=== PATIENT | female | born 1965 | race Caucasian/White ===

== ENCOUNTER 2024-04-01 13:21 | Emergency (ER) | payer OTHER, SELFPAY ==
[2024-04-01 13:24] VITALS: BP 115/75
--- NOTE | 2024-04-01 15:30 | ED.GENMED ---
History of Present Illness
General
Chief Complaint: Fever
Time Seen by Provider: 04/01/24 15:12
History of Present Illness
History of Present Illness:
58-year-old female presents the emergency department with a chief complaint of left knee pain after a fall yesterday. She also notes that she has had a fever and a migraine headache for the past 3 days. According to her son she is somewhat
confused on occasion which is normal for her whenever she has a fever. Patient also endorses a cough but denies any lower urinary tract voiding symptoms. She is quite agitated on my initial evaluation and is frequently yelling at me for asking her
questions.
Past History
Past History
ED Past Medical History: Asthma and Other (Migraines, atrial tachycardia)
ED Past Surgical History: Other (Breast implants)
Social History
Tobacco: Non-smoker
Alcohol: Occasional
Drug: None
Personal: Single
Living: with family
Review of Systems
Review of Systems
Allergies reviewed?: Yes
All Other Systems: ROS reviewed and negative except as documented in HPI and ROS
Phy Exam
Physical Exam
Physical Exam:
GEN: Well appearing, NAD, WDWN
HEENT: Oral mucosa moist, no scleral icterus
Cardiac: Regular rate and rhythm, no murmurs
Lung: No respiratory distress, no tachypnea, lungs clear to auscultation bilaterally
MSK: Mild swelling to the left knee with no gross deformity or ecchymosis. The patient screams in agony of the left knee and refuses to move the knee, no obvious hip tenderness
Skin: Good color, no pallor or jaundice, no rashes
Neuro: AO x3, moves all extremities freely
Psych: Agitated and noncooperative
Course
Orders/Labs/Results
Orders:
Orders
04/01/24 15:29
Metoclopramide [Reglan] 10 mg IV NOW STA
04/01/24 15:45
Alcohol Urgent
CBC/With Diff [Complete Blood Count/With Diff] Urgent
CMP [Comprehensive Metabolic Panel] Urgent
04/01/24 16:03
Ondansetron Injectable [Zofran] 4 mg IV NOW STA
Abnormal Lab Results
04/01/24
15:45
MCH 33.8 H pg
(27.0-31.0)
04/01/24 15:45
04/01/24 15:45
Vital Signs
Initial and Last Documented VS:
Initial Vital Signs
Temp Pulse Resp BP Pulse Ox
98.0 F 84 18 115/75 97
04/01/24 13:24 04/01/24 13:24 04/01/24 13:24 04/01/24 13:24 04/01/24 13:24
Last Documented Vital Signs
Temp Pulse Resp BP Pulse Ox
98.0 F 76 14 120/71 94
04/01/24 13:24 04/01/24 16:00 04/01/24 15:45 04/01/24 16:00 04/01/24 16:00
MDM/Problems Addressed
MDM/Problems Addressed:
After initial evaluation I discussed with the patient we will be obtaining labs and a chest x-ray to evaluate for pulmonary etiology to her fever as well as a urinalysis, ultimately would also obtain left knee x-rays. When I approached the subject
of left knee x-rays the patient said to me 'chest x-rays? I could have done that in urgent care'. I informed her that x-rays are an appropriate study for her traumatic knee pain however she again became irate at this. Shortly after my orders were
placed the patient informed her nurse that she would like to sign out AGAINST MEDICAL ADVICE. I reevaluated the patient informed her that we have not completed any workup and thus cannot provide any further medical care. Despite this she opted to
leave AGAINST MEDICAL ADVICE without signing paperwork, her son assumed care of her at the time of departure
*Critical Care Note
Total Time (30-74mins, 75-104mins- exclusive of procedures): Not Applicable
Update Note
Update Note:
1607: Patient informs me that she would like to sign out AGAINST MEDICAL ADVICE. She states she is waited entirely too long and does not feel that an x-ray of her left knee will be appropriate. I educated her that her orders are in and we will
happily treat her migraine headache and assess her fever and coughing as well as her left knee pain however she declines and states to me 'this is a waste of time'. She is clinically stable and although I am concerned she may have a significant
left knee injury patient is quite aggravated and refuses to allow for any further assessment.
ED Attending Note
-
Portions of this chart may have been created with voice recognition software.� Occasional wrong word or��sound alike� substitutions may have occurred due to the inherent limitations of voice recognition software.
Discharge Plan
Departure
Patient Disposition: Against Medical Advice
Date of Disposition: 04/01/24
Time of Disposition: 16:11
Discharge Problem:
Migraine, Fever, Injury of knee, left
Prescriptions:
No Action
metoprolol tartrate 50 MG tablet
50 mg PO BID
albuterol sulfate 1 PUFF HFA aerosol inhaler
2 puff inhalation R Q4 PRN (Reason: sob/wheezing)
albuterol sulfate 2.5 mg /3 mL (0.083 %) solution for nebulization
2.5 mg inhalation R Q4 PRN (Reason: sob/wheezing)
iyvqlkbqmr-uzurqxazjteci-qbzq 50-325-40 mg tablet
1 tab PO Q4H MDD 6tabs/24hrs PRN (Reason: migraine)
Patient Comments:
09/15/2022: last filled 09/11/22, 120 tabs for 20 days from [id number]
oxycodone-acetaminophen 10-325 mg tablet
1 tab PO Q6H PRN (Reason: moderate pain)
Patient Comments:
09/15/2022: last filled 08/31/22, 100 tabs for 25 days from [id number]
Polysporin 500-10,000 unit/gram Ointment In Packet
0 applic topical BID Qty: 0 0RF
cephalexin 500 mg capsule
500 mg PO QID Qty: 40 0RF
Rx Instructions:
take for 10 days
Referrals:
Canelo Mijares MD [Family Provider] -
Activity Restrictions/Additional Instructions:
We offered to assess blood work and treat her migraine headache as well as assessed your left knee injury however you opted to sign out AGAINST MEDICAL ADVICE. Please consider returning to the Emergency Department if your symptoms worsen
Interventions
Interventions:
*Risk Screen - Suicide Last Done: 04/01/24 13:24
*General Assessment Last Done: 04/01/24 13:24
*Neglect/Abuse Screening Last Done: 04/01/24 13:24
ED- Fall Risk Assessment Last Done: 04/01/24 16:41
*ED COVID-19 Vaccine History Last Done: 04/01/24 13:24
*Nursing Disposition Last Done: 04/01/24 16:42
ED- Neurological Assessment Last Done: 04/01/24 15:50
ED-Skin Assessment Last Done: 04/01/24 15:50
Discharge Date and Time
Discharge Date/Time: 04/01/24 16:43
Print Language: KAZAKH
[2024-04-01] MEDS: REGLAN 10 MG IV (15:35)
[2024-04-01 15:44] VITALS: BP 114/68
[2024-04-01 16:00] VITALS: BP 120/71
[2024-04-01 16:17] LABS: % Basophils 0.4 % (0-2); % Eosinophils 0.7 % (0-6); % Immature Granulocytes 0.1 % (0-0.5); % Lymphocytes 24.7 % (20.5-51.1); % Neutrophils 67.1 % (42.2-75.2); Absolute Eosinophils 0.1 10^3/uL (0-0.7); Absolute Lymphocytes 2.1 10^3/uL (1.2-3.4); Absolute Monocytes 0.6 10^3/uL (0.1-0.6); Absolute Neutrophils 5.7 10^3/uL (1.4-6.5); Hematocrit 41.7 % (37.0-47.0); Hemoglobin 14.3 g/dL (12.0-16.0); Mean Corp Hgb Conc. 34.3 g/dL (33.0-37.0); Mean Corpuscular Hgb 33.8 pg (27.0-31.0); Mean Corpuscular Volume 98.6 fL (81.0-99.0); Mean Platelet Volume 9.9 fL (7.4-10.4); Nucleated Red Blood Cells % 0 %; Platelet Count 248 10^3/uL (130-400); Red Blood Cell Count 4.23 10^6/uL (4.20-5.40); Red Cell Dist. Width 13.5 % (11.5-14.5); White Blood Cell Count 8.5 10^3/uL (4.8-10.8)
[2024-04-01 16:39] LABS: ALT (SGPT) 15 U/L (0-35); AST (SGOT) 25 U/L (14-36); Alkaline Phosphatase 76 U/L (38-126); Blood Urea Nitrogen 12 mg/dl (7-17); Calcium 9.7 mg/dl (8.4-10.2); Carbon Dioxide 25 mmol/L (22-30); Chloride 102 mmol/L (98-107); Glucose 90 mg/dl (70-99); Potassium 4.6 mmol/L (3.5-5.1); Sodium 136 mmol/L (135-145); Total Bilirubin 0.7 mg/dl (0.2-1.3); Total Protein 7.4 g/dl (6.3-8.2); eGFR > 60.00
[2024-04-01 17:21] LABS: Alcohol None Detected
== END 2024-04-01 16:43 | disposition left against medical advice (07) ==
LOC: EMR 13:21
PROVIDERS: Emergency Medicine; EMERGENCY PHYSICIAN Student in an Organized Health Care Education/Training Program; FAMILY PHYSICIAN Family Medicine
DX: G43.909 Migraine, unspecified, not intractable, without status migrainosus (principal); R50.9 Fever, unspecified; S89.92XA Unspecified injury of left lower leg, initial encounter; W19.XXXA Unspecified fall, initial encounter; M25.562 Pain in left knee; J45.909 Unspecified asthma, uncomplicated
CPT/HCPCS: 99283; 96374; 96375; 80053; 82077; 85025

== ENCOUNTER 2024-06-05 11:07 | Emergency (ER) | payer OTHER, SELFPAY ==
[2024-06-05 11:09] VITALS: BP 133/82
--- NOTE | 2024-06-05 11:36 | ED.GENMED ---
History of Present Illness
<Cassia Le PA-C - Last Filed: 06/05/24 17:02>
General
Chief Complaint: Fall
Source: patient
Exam Limitations: none
Time Seen by Provider: 06/05/24 11:35
Nursing documentation reviewed up to this point in time: agreed with
History of Present Illness
History of Present Illness:
59-year-old female presents emergency department today with concerns of migraine headache for the past 3 days as well as left-sided supraorbital pain following head trauma that occurred yesterday. Patient reports that she was standing in the
bathroom when she slipped on water and subsequently fell into the tub, hitting her face and subsequently losing consciousness. Patient is present in room with son who reports that he was at home during this time when he heard a loud crash and came
to see patient lying on the ground. Patient reports that she has been icing the area without relief. Patient states that she has felt foggy and states that she has had a persistent migraine, which is usually relieved with Fioricet but this time is
not helping. She also has felt nauseous but has had no vomiting. Patient denies any fevers or chills. Patient denies any neck pain. Patient does not take any blood thinning medications. Patient states that she has an allergy to all NSAIDs and
states that when she takes them a lot of different side affects will occur. Patient denies any visual changes. She does note an on and off ringing sensation in her right ear.
Past History
<Cassia Le PA-C - Last Filed: 06/05/24 17:02>
Past History
ED Past Medical History: Asthma and Other (Migraines, atrial tachycardia)
ED Past Surgical History: Other (Breast implants)
Social History
Tobacco: Non-smoker
Alcohol: Occasional
Drug: None
Personal: Single
Living: with family
Review of Systems
<Cassia Le PA-C - Last Filed: 06/05/24 17:02>
Review of Systems
All Other Systems: ROS reviewed and negative except as documented in HPI and ROS
Phy Exam
<Cassia Le PA-C - Last Filed: 06/05/24 17:02>
Physical Exam
Physical Exam:
General: Patient is well appearing and in no acute distress; non-toxic
Skin: Warm and dry, no rashes or lesions
Head: Normocephalic, no palpable scalp hematomas. Ecchymosis surrounding the left orbit. Tenderness to palpation the left segment process with no palpable bony abnormalities.
Eyes: Sclera non-icteric. EOMs intact. PERRLA. No entrapment.
Cardiac: Regular rate and rhythm, no murmurs. No tenderness palpation of external chest wall.
Pulm: Normal respiratory effort, no wheezes, rales, rhonchi
Abdomen: No abdominal tenderness to palpation
Musculoskeletal: Mild suprapatellar swelling noted to the left knee, no obvious bony deformities, pain with passive flexion extension
Neuro: CN II-XII intact, no focal neurologic deficits. Normal finger to nose, heel to harkins testing. 5/5 strength in bilateral upper and lower extremeties.
Psychiatric: Appropriate mood and affect.
Course
<Cassia Le PA-C - Last Filed: 06/05/24 17:02>
Orders/Labs/Results
Orders:
Orders
06/05/24 11:20
CT Head W/o Iv Contrast Urgent
Comment:
Reason For Exam: head injury, change in mental status
Facial Bones wo Contrast CT [CT Facial Bones W/o Iv Contras] Urgent
Comment:
Reason For Exam: trauma
06/05/24 12:18
CR Knee - Left 4 Or More View* Urgent
Comment:
Reason For Exam: left knee pain
06/05/24 12:42
0.9% Sodium Chloride 500 ml [Nss] 500 ml IV BOLUS
Diphenhydramine [Benadryl] 12.5 mg IV NOW STA
Metoclopramide [Reglan] 10 mg IV NOW STA
06/05/24 14:20
Butalb/Acetaminophen/Caffeine [Fioricet] 2 tab PO NOW STA
Vital Signs
Initial and Last Documented VS:
Initial Vital Signs
Temp Pulse Resp BP Pulse Ox
97.6 F 87 16 133/82 96
06/05/24 11:09 06/05/24 11:09 06/05/24 11:09 06/05/24 11:09 06/05/24 11:09
Last Documented Vital Signs
Temp Pulse Resp BP Pulse Ox
97.6 F 87 16 131/69 96
06/05/24 11:09 06/05/24 11:09 06/05/24 11:09 06/05/24 12:25 06/05/24 12:30
<Emmanuel Bowman, - Last Filed: 06/05/24 14:34>
Orders/Labs/Results
Orders:
Orders
06/05/24 11:20
CT Head W/o Iv Contrast Urgent
Comment:
Reason For Exam: head injury, change in mental status
Facial Bones wo Contrast CT [CT Facial Bones W/o Iv Contras] Urgent
Comment:
Reason For Exam: trauma
06/05/24 12:18
CR Knee - Left 4 Or More View* Urgent
Comment:
Reason For Exam: left knee pain
06/05/24 12:42
0.9% Sodium Chloride 500 ml [Nss] 500 ml IV BOLUS
Diphenhydramine [Benadryl] 12.5 mg IV NOW STA
Metoclopramide [Reglan] 10 mg IV NOW STA
06/05/24 14:20
Butalb/Acetaminophen/Caffeine [Fioricet] 2 tab PO NOW STA
Vital Signs
Initial and Last Documented VS:
Initial Vital Signs
Temp Pulse Resp BP Pulse Ox
97.6 F 87 16 133/82 96
06/05/24 11:09 06/05/24 11:09 06/05/24 11:06/05/24 11:09 06/05/24 11:09
Last Documented Vital Signs
Temp Pulse Resp BP Pulse Ox
97.6 F 87 16 131/69 96
06/05/24 11:09 06/05/24 11:09 06/05/24 11:09 06/05/24 12:25 06/05/24 12:30
Phyllislt;Cassia Le PA-C - Last Filed: 06/05/24 17:02>
MDM/Problems Addressed
Differential Diagnosis Includes:
Differentials include concussion, subdural hematoma, epidural hematoma, migraine headache, tension headache
MDM/Problems Addressed:
59-year-old female presents emergency department with concerns of a 3-day migraine as well as head trauma. Patient reports that she was standing in the bathroom yesterday when she slipped on water and fell, hitting her head on the tub. Patient
states that after this time she started to feel 'foggy' in the head, as well as have the ringing sensation in her right ear. Here in the ER, will treat migraine symptoms with Reglan and Benadryl, will reassess.
On exam, she is well-appearing but does have ecchymosis around the left orbit. She received a CAT scan of the head and facial bones which was negative for any acute intracranial abnormality, negative for any acute fracture. Will send off for x-ray
of the knee.
Patient treated with Reglan and Benadryl. Patient offered Tylenol and Toradol however she reports that she is allergic to all NSAIDs and gets severe itching and also reports that Tylenol does not help her at all. Patient persistently requesting
opioids. Patient states that her parasites at home have helped in the past. Patient states that the Benadryl Reglan given here did not help her symptoms. Patient given her Fioricet dosing here in the emergency department. Patient symptoms likely
related to her migraine disorder as well as concussion as her injury occurred last night and her CAT scan of the head and facial bones were negative for any acute intracranial normality. Patient stable for outpatient follow-up. Discussed seeing a
neurologist for her persistent headaches or seeing her PCP. Patient stable for discharge.
Chronic conditions affecting care:
asthma, migraines
<Cassia Le PA-C - Last Filed: 06/05/24 17:02>
*Pulse Oximetry
Patient hypoxic: no
*Critical Care Note
Total Time (30-74mins, 75-104mins- exclusive of procedures): Not Applicable
Data Reviewed
Review of Other/Old Records Reveals: Records (Reviewed discharge summary from 09/14/2022, patient seen in hospital for altered mental status, opioid abuse with suspected ) and Radiology Studies (Reviewed previous head CT from 09/13/2022, patient seen
for altered mental status, head CT normal)
Source: patient and records
Prescriptions/Medications Considered But Not Given:
n/a
Further Testing Considered But Not Given:
n/a
<Cassia Le PA-C - Last Filed: 06/05/24 17:02>
Patient Management
Escalation/DeEscalation of care consider admission/obs:
Admit not indicated, patient stable for discharge
ED Attending Note
<BETH Paulino Last Filed: 06/05/24 17:02>
-
Portions of this chart may have been created with voice recognition software.� Occasional wrong word or��sound alike� substitutions may have occurred due to the inherent limitations of voice recognition software.
<Emmanuel Bowman DO - Last Filed: 06/05/24 14:34>
ED Attending Note
Patient seen and examined by attending physician: Yes
I performed the substantive portion of visit, reviewed & personally made and approve the management plan that is documented in note by myself or SANDRA.: Yes
ED Attending Note:
59yo female who presents after head injury. she states that she fell in the shower yesterday. c/o SANDOVAL. does admit to h/o migraines and states she has had a headache for the last 2 to 3 days. She takes Fioricet. Exam: Left periorbital ecchymosis
noted. Nonfocal motor exam. CT negative. Assessment and plan: CT negative. Patient appears well. Patient admits that her aura has resolved. Patient does still complain of headache. Will trial her dose of Fioricet as she has not taken it
today. Recommended close outpatient follow-up.
Discharge Plan
Departure
Patient Disposition: Home (Routine Discharge)
Date of Disposition: 06/05/24
Time of Disposition: 14:20
Patient with high blood pressure during this ER visit?: Yes
Condition: Good
Discharge Problem:
Concussion, Head injury
Instructions: Concussion, Adult (DC), Head Injury in Adults (DC)
Prescriptions:
No Action
metoprolol tartrate 50 MG tablet
50 mg PO BID
albuterol sulfate 1 PUFF HFA aerosol inhaler
2 puff inhalation R Q4 PRN (Reason: sob/wheezing)
albuterol sulfate 2.5 mg /3 mL (0.083 %) solution for nebulization
2.5 mg inhalation R Q4 PRN (Reason: sob/wheezing)
sgjmtasbxs-feadibcmmhrul-dyfh 50-325-40 mg tablet
1 tab PO Q4H MDD 6tabs/24hrs PRN (Reason: migraine)
Patient Comments:
09/15/2022: last filled 09/11/22, 120 tabs for 20 days from [facility]
oxycodone-acetaminophen 10-325 mg tablet
1 tab PO Q6H PRN (Reason: moderate pain)
Patient Comments:
09/15/2022: last filled 08/31/22, 100 tabs for 25 days from [facility]
Polysporin 500-10,000 unit/gram Ointment In Packet
0 applic topical BID Qty: 0 0RF
cephalexin 500 mg capsule
500 mg PO QID Qty: 40 0RF
Rx Instructions:
take for 10 days
Referrals:
John Caballero MD [Active] - Call in 1-3 days for appt
Canelo Mijares MD [Family Provider] -
Activity Restrictions/Additional Instructions:
Please follow-up with your primary care provider in 1 week. You may need to receive an MRI of the knee and be evaluated again by a neurologist.
You may experience headaches, some mild dizziness, and visual changes a symptoms of a concussion. If the symptoms do not resolve on their own within 1 to 2 weeks, please follow-up with your primary care provider. Please avoid activities that
exacerbate your symptoms.
Please return emergency department should you experience persistent headache, intractable vomiting, trouble breathing, chest pain, visual loss, or any other signs or symptoms concerning to you
Interventions
Interventions:
*Risk Screen - Suicide Last Done: 06/05/24 12:16
*General Assessment Last Done: 06/05/24 12:16
*Neglect/Abuse Screening Last Done: 06/05/24 12:16
ED- Fall Risk Assessment Last Done: 06/05/24 12:16
*ED COVID-19 Vaccine History Last Done: 06/05/24 12:16
*Nursing Disposition Last Done: 06/05/24 15:00
ED-Musculoskeletal Assessment Last Done: 06/05/24 12:25
ED- Neurological Assessment Last Done: 06/05/24 12:16
ED-Skin Assessment Last Done: 06/05/24 12:16
Discharge Date and Time
Discharge Date/Time: 06/05/24 15:01
Print Language: FIJIAN
[2024-06-05 12:25] VITALS: BP 131/69
[2024-06-05] MEDS: REGLAN 10 MG IV (12:57)
[2024-06-05] MEDS: NSS 500 IV (12:58)
[2024-06-05] MEDS: BENADRYL 12.5 MG IV (12:58)
[2024-06-05] MEDS: FIORICET 2 TAB PO (14:40)
== END 2024-06-05 15:01 | disposition home or self-care (01) ==
LOC: EMR 11:07
PROVIDERS: EMERGENCY PHYSICIAN Emergency Medicine; FAMILY PHYSICIAN Family Medicine
DX: S06.0XAA Concussion with loss of consciousness status unknown, initial encounter (principal); W18.2XXA Fall in (into) shower or empty bathtub, initial encounter; M25.562 Pain in left knee; R03.0 Elevated blood-pressure reading, without diagnosis of hypertension
CPT/HCPCS: 99284; 96374; 96375; 96361; 70450; 70486; 73564

== ENCOUNTER 2024-11-23 16:16 | Emergency (ER) | payer OTHER, SELFPAY ==
[2024-11-23 16:22] VITALS: BP 107/72
[2024-11-23 16:50] LABS: % Basophils 0.5 % (0-2); % Eosinophils 0.6 % (0-6); % Immature Granulocytes 0.1 % (0-0.5); % Lymphocytes 31.8 % (20.5-51.1); % Monocytes 5.7 % (1.7-9.3); % Neutrophils 61.3 % (42.2-75.2); Absolute Eosinophils 0.1 10^3/uL (0-0.7); Absolute Lymphocytes 2.6 10^3/uL (1.2-3.4); Absolute Monocytes 0.5 10^3/uL (0.1-0.6); Absolute Neutrophils 5.1 10^3/uL (1.4-6.5); Hematocrit 41.7 % (37.0-47.0); Hemoglobin 13.8 g/dL (12.0-16.0); Mean Corp Hgb Conc. 33.1 g/dL (33.0-37.0); Mean Corpuscular Hgb 33.4 pg (27.0-31.0); Mean Platelet Volume 9.8 fL (7.4-10.4); Nucleated Red Blood Cells % 0 %; Platelet Count 248 10^3/uL (130-400); Red Blood Cell Count 4.13 10^6/uL (4.20-5.40); Red Cell Dist. Width 13.2 % (11.5-14.5); White Blood Cell Count 8.3 10^3/uL (4.8-10.8)
[2024-11-23 17:13] LABS: ALT (SGPT) 12 U/L (0-35); AST (SGOT) 24 U/L (14-36); Albumin 4.7 g/dl (3.5-5.0); Alkaline Phosphatase 72 U/L (38-126); Blood Urea Nitrogen 11 mg/dl (7-17); Calcium 9.8 mg/dl (8.4-10.2); Carbon Dioxide 26 mmol/L (22-30); Chloride 105 mmol/L (98-107); Glucose 118 mg/dl (70-99); Potassium 4.9 mmol/L (3.5-5.1); Sodium 141 mmol/L (135-145); Total Bilirubin 0.6 mg/dl (0.2-1.3); eGFR 57.88
[2024-11-23 17:15] LABS: Troponin I < 0.012 ng/ml
--- NOTE | 2024-11-23 17:54 | ED.GENMED ---
History of Present Illness
<Cassia Le PA-C - Last Filed: 11/23/24 22:40>
General
Chief Complaint: Chest Pain
Source: patient
Exam Limitations: none
Time Seen by Provider: 11/23/24 17:53
Nursing documentation reviewed up to this point in time: agreed with
History of Present Illness
History of Present Illness:
This is a 59-year-old female with a past medical history of asthma, migraine, osteoarthritis, presents emergency department today with concerns of multiple complaints with primary concern being right shoulder pain and shortness of breath. Patient
states that she has had chest pain, right shoulder pain, shortness of breath for around 4 months now. Patient does follow-up with an orthopedist and a veneer cutter. Patient reports that no one can help her with her symptoms. She reports that she
saw her primary care provider 2 days ago for the symptoms and reports that her primary ordered an MRI for the symptoms however the MRI is not scheduled till December and patient reports that her pain has been getting worse and a tramadol at home is not
been helping and she has an allergic reaction to it. Patient reports that Tylenol and NSAIDs do not work for her either. Patient states that she has been using inhalers at home which has not improved her shortness of breath. Patient also started
to notice some left knee pain with ambulation. She states that in general she feels tired and fatigued and weak. Patient requesting alternative medication for her pain. Patient reports that combination Percocet and prednisone has worked for her
in the past.
Past History
<Cassia Le PA-C - Last Filed: 11/23/24 22:40>
Past History
ED Past Medical History: Asthma and Other (Migraines, atrial tachycardia)
ED Past Surgical History: Other (Breast implants)
Social History
Tobacco: Non-smoker
Alcohol: Occasional
Drug: None
Personal: Single
Living: with family
Review of Systems
<Cassia Le PA-C - Last Filed: 11/23/24 22:40>
Review of Systems
All Other Systems: ROS reviewed and negative except as documented in HPI and ROS
Phy Exam
<Cassia Le PA-C - Last Filed: 11/23/24 22:40>
Physical Exam
Physical Exam:
General: Patient is well appearing and in no acute distress; non-toxic
Skin: Warm and dry, no rashes or lesions. Brisk capillary refill.
Head: Normocephalic, atraumatic
Eyes: Sclera non-icteric. EOMs intact.
Cardiac: Regular rate and rhythm, no murmurs, no reproducible chest tenderness
Pulm: Normal respiratory effort, no wheezes, rales, rhonchi
Musculoskeletal: Right shoulder pain noted with abduction. No obvious pain with internal/external rotation. No tenderness palpation of the right wrist and right elbow. Mild suprapatellar effusion noted on the left knee, pain with passive
extension.
Neuro: CN II-XII intact, no focal neurologic deficits.
Psychiatric: Appropriate mood and affect.
Scores
<Cassia Le PA-C - Last Filed: 11/23/24 22:40>
Heart Score for Chest Pain Patients
STEMI patient?: No
History: Slightly or Non-Suspicious
ECG: Normal
Age: >45 - <65 years
Risk Factors: 1 or 2 Risk Factors
Troponin: </= Normal Limit
Heart Score for Chest Pain Patients: 2
Heart Score Risk: 2.5% MACE over next 6 weeks
<Caio Villasenor MD - Last Filed: 11/23/24 22:51>
Heart Score for Chest Pain Patients
Heart Score for Chest Pain Patients: 2
Heart Score Risk: 2.5% MACE over next 6 weeks
Course
<Cassia Le PA-C - Last Filed: 11/23/24 22:40>
Orders/Labs/Results
Orders:
Orders
11/23/24 16:16
Electrocardiogram (*1) Urgent
Reason for Study: Chest Pain
11/23/24 16:17
EKG- Treatment ONCE
11/23/24 16:33
Complete Blood Count/With Diff Urgent
Comprehensive Metabolic Panel Urgent
Troponin I Urgent
11/23/24 17:58
Alcohol Routine
Magnesium Urgent
11/23/24 18:19
CR Knee - Left 4 Or More View* Urgent
Comment:
Reason For Exam: left knee pain
CR Shoulder - Right Min 2 View Urgent
Comment:
Reason For Exam: right shoulder pain
11/23/24 18:20
CR Chest - 2 Views Urgent
Comment:
Reason For Exam: chest pain, shortness of breath
11/23/24 18:27
Acetaminophen [Tylenol] 1,000 mg PO NOW STA
11/23/24 18:51
Morphine Sulfate 2 mg IV NOW STA
11/23/24 19:17
CT Head W/o Iv Contrast Urgent
Comment:
Reason For Exam: headache following fall
11/23/24 20:44
Oxycodone/Acetaminophen [Percocet 5/325] 1 tablet PO NOW STA
11/23/24 20:45
Prednisone [Deltasone] 40 mg PO DAILY ONE
Abnormal Lab Results
11/23/24
16:33
RBC 4.13 L 10^6/uL
(4.20-5.40)
MCV 101.0 H fL
(81.0-99.0)
MCH 33.4 H pg
(27.0-31.0)
Creatinine 1.1 H mg/dL
(0.6-1.0)
Glucose 118 H mg/dl
(70-99)
11/23/24 16:33
11/23/24 16:33
Vital Signs
Initial and Last Documented VS:
Initial Vital Signs
Temp Pulse Resp BP Pulse Ox
98.4 F 96 16 107/72 94
11/23/24 16:22 11/23/24 16:22 11/23/24 16:22 11/23/24 16:22 11/23/24 16:22
Last Documented Vital Signs
Temp Pulse Resp BP Pulse Ox
98.6 F 81 20 117/65 92
11/23/24 18:02 11/23/24 21:15 11/23/24 21:15 11/23/24 21:00 11/23/24 21:15
<Caio Villasenor MD - Last Filed: 11/23/24 22:51>
Orders/Labs/Results
Orders:
Orders
11/23/24 16:16
Electrocardiogram (*1) Urgent
Reason for Study: Chest Pain
11/23/24 16:17
EKG- Treatment ONCE
11/23/24 16:33
Complete Blood Count/With Diff Urgent
Comprehensive Metabolic Panel Urgent
Troponin I Urgent
11/23/24 17:58
Alcohol Routine
Magnesium Urgent
11/23/24 18:19
CR Knee - Left 4 Or More View* Urgent
Comment:
Reason For Exam: left knee pain
CR Shoulder - Right Min 2 View Urgent
Comment:
Reason For Exam: right shoulder pain
11/23/24 18:20
CR Chest - 2 Views Urgent
Comment:
Reason For Exam: chest pain, shortness of breath
11/23/24 18:27
Acetaminophen [Tylenol] 1,000 mg PO NOW STA
11/23/24 18:51
Morphine Sulfate 2 mg IV NOW STA
11/23/24 19:17
CT Head W/o Iv Contrast Urgent
Comment:
Reason For Exam: headache following fall
11/23/24 20:44
Oxycodone/Acetaminophen [Percocet 5/325] 1 tablet PO NOW STA
11/23/24 20:45
Prednisone [Deltasone] 40 mg PO DAILY ONE
Abnormal Lab Results
11/23/24
16:33
RBC 4.13 L 10^6/uL
(4.20-5.40)
MCV 101.0 H fL
(81.0-99.0)
MCH 33.4 H pg
(27.0-31.0)
Creatinine 1.1 H mg/dL
(0.6-1.0)
Glucose 118 H mg/dl
(70-99)
11/23/24 16:33
11/23/24 16:33
Vital Signs
Initial and Last Documented VS:
Initial Vital Signs
Temp Pulse Resp BP Pulse Ox
98.4 F 96 16 107/72 94
11/23/24 16:22 11/23/24 16:22 11/23/24 16:22 11/23/24 16:22 11/23/24 16:22
Last Documented Vital Signs
Temp Pulse Resp BP Pulse Ox
98.6 F 81 20 117/65 92
11/23/24 18:02 11/23/24 21:15 11/23/24 21:15 11/23/24 21:00 11/23/24 21:15
Phyllislt;Cassia Le PA-C - Last Filed: 11/23/24 22:40>
MDM/Problems Addressed
Differential Diagnosis Includes:
ACS, osteoarthritis, labrum tear, pneumonia, COPD
MDM/Problems Addressed:
59-year-old female presents emergency department today with concerns of right shoulder pain and shortness of breath. She is concerned because her pain is getting worse but her MRI is not scheduled in December and is requesting an MRI today more pain
medication. I did have discussion with patient that an MRI emergency department is not warranted at this time. Nephew is concerned about potential mental status changes patient has been more fatigued and slurring her words. CT of the head is
negative for any acute disease. Patient got x-rays today of her knee and shoulder it shows signs of arthritis but no acute disease, her chest x-ray is negative for any pneumonia or pneumothorax. Suspect patient's symptoms a continuation of her
chronic asthma and chronic arthritic pain. Patient does have follow-up with orthopedist that did encourage patient to call tomorrow to see if she can get her MRI bumped up. Will start patient on a regimen of Percocet) as this has worked for
patient in the past. EKG and troponin shows no signs for ACS. Patient stable for discharge and outpatient follow-up.
Chronic conditions affecting care:
Asthma, migraines, osteoarthritis
<Cassia Le PA-C - Last Filed: 11/23/24 22:40>
*Pulse Oximetry
Patient hypoxic: no
*Critical Care Note
Total Time (30-74mins, 75-104mins- exclusive of procedures): Not Applicable
Data Reviewed
Review of Other/Old Records Reveals: Records (Reviewed previous records, reviewed ER discharge documentation from 06/05/2024 patient seen for concussion, reviewed discharge summary from 1 patient 3 patient seen for positive blood cultures,)
ED Attending Note
<Cassia Le PA-C - Last Filed: 11/23/24 22:40>
-
Portions of this chart may have been created with voice recognition software.� Occasional wrong word or��sound alike� substitutions may have occurred due to the inherent limitations of voice recognition software.
<Caio Villasenor MD - Last Filed: 11/23/24 22:51>
ED Attending Note
Patient seen and examined by attending physician: Yes
ED Attending Note:
Patient presenting with worsening chronic shoulder pain, right greater than left. Denies new trauma. Patient has been evaluated by her primary care physician. Patient already has MRI shoulder scheduled for December, along with an appointment with her
orthopedic surgeon at [facility] afterwards. Denies fever or chills. Denies loss of sensation or weakness. Patient has taken tramadol, prescribed by her primary care physician 2 days ago, without any relief in symptoms, but developed rash
afterwards. Patient states that secondary to pain, she is having hard time sleeping, and has also developed diffuse pain across her chest, abdomen, and back as well.
Physical Exam
General: mild distress, not acutely ill. afebrile
Head: nc/at. eomi
Neck: supple. no meningeal signs.
Heart: s1/s2 regular rate and rhythm
Lungs: no acute respiratory distress. clear bilaterally
Abdomen: normal bowel sounds. not tender.
Neuro: alert and oriented x 3. no focal neurological deficits
Skin: no rash
Psychiatric: well kept. interactive and cooperative
Extremities: diffuse b/l shoulder tenderness to palpation, without obvious deformity
Patient with an unremarkable workup in ED, including imaging studies and blood work. History and exam inconsistent with any concerning cardiac etiology, but likely musculoskeletal. As such, after much discussion with patient and family, decision
made to discharge patient home with conservative treatment via pain medications, which has helped patient in the past, consisting of prednisone and Percocet. Patient will also utilize arm sling that she has at home, during daytime, as needed.
Patient will continue to call outpatient radiology, to reschedule her MRI for an earlier date, if possible. Otherwise, patient is afebrile, hemodynamically stable, neurologically intact, and is without significant distress, at time of discharge.
Discharge Plan
Departure
Patient Disposition: Home (Routine Discharge)
Date of Disposition: 11/23/24
Time of Disposition: 21:13
Patient with high blood pressure during this ER visit?: Yes
Condition: Good
Discharge Problem:
Pain in right shoulder, Shortness of breath, Chest pain
Instructions: Osteoarthritis, Shoulder pain - ED discharge instructions, Chest Pain
Prescriptions:
New
prednisone 20 mg tablet
40 mg PO DAILY 4 Days Qty: 8 0RF
oxycodone-acetaminophen [Percocet] 5-325 mg tablet
1 tab PO Q4HPRN PRN (Reason: pain) Qty: 8 0RF
No Action
metoprolol tartrate 50 MG tablet
50 mg PO BID
albuterol sulfate 1 PUFF HFA aerosol inhaler
2 puff inhalation R Q4 PRN (Reason: sob/wheezing)
albuterol sulfate 2.5 mg /3 mL (0.083 %) solution for nebulization
2.5 mg inhalation R Q4 PRN (Reason: sob/wheezing)
zdqvfowhzu-yusaciaqnhpax-atlt 50-325-40 mg tablet
1 tab PO Q4H MDD 6tabs/24hrs PRN (Reason: migraine)
Patient Comments:
09/15/2022: last filled 09/11/22, 120 tabs for 20 days from [facility]#[id number]
oxycodone-acetaminophen 10-325 mg tablet
1 tab PO Q6H PRN (Reason: moderate pain)
Patient Comments:
09/15/2022: last filled 08/31/22, 100 tabs for 25 days from [facility]#[id number]
Polysporin 500-10,000 unit/gram Ointment In Packet
0 applic topical BID Qty: 0 0RF
cephalexin 500 mg capsule
500 mg PO QID Qty: 40 0RF
Rx Instructions:
take for 10 days
Referrals:
Canelo Mijares MD [Family Provider] -
Activity Restrictions/Additional Instructions:
Your medications were sent to the 24-hour pharmacy at [facility] on [facility].
Please follow up with your veneer cutter regarding your shortness of breath. Your chest x-ray today shows no acute disease of the chest.
In terms of your headache and dizziness following your fall, your CT scan of the head showed no acute intracranial abnormality.
Regards to your shoulder pain, please call your orthopedist and your imaging center and please state that you were seen in the ER to see if you can get your MRI moved up. I recommend wearing her shoulder immobilizer at home when ambulating. Please
also finish your course of prednisone starting tomorrow for 4 additional days. You received your first dose today. Percocet has also been sent to your pharmacy. This medication contains Tylenol so please do not take Tylenol with this medication.
PLEASE RETURN EMERGENCY DEPARTMENT IF YOU DEVELOP AN ACUTE WORSENING OF YOUR SYMPTOMS, DIFFICULTY BREATHING, WORSENING PAIN IN YOUR CHEST, WEAKNESS IN ONE-SIDED BODY VERSUS OTHER, INABILITY AMBULATE, OR ANY OTHER SIGNS OR SYMPTOMS WORRISOME TO YOU
Interventions
Interventions:
*Risk Screen - Suicide Last Done: 11/23/24 18:02
*General Assessment Last Done: 11/23/24 18:02
*Neglect/Abuse Screening Last Done: 11/23/24 18:02
*ED- Fall Risk Assessment Last Done: 11/23/24 18:02
*ED COVID-19 Vaccine History Last Done: 11/23/24 18:02
*Nursing Disposition Last Done: 11/23/24 21:57
ED- Cardiac Assessment Last Done: 11/23/24 18:02
Discharge Date and Time
Discharge Date/Time: 11/23/24 21:59
Print Language: LAO
[2024-11-23 17:56] VITALS: BMI 18.6
[2024-11-23 18:00] VITALS: BP 119/71
[2024-11-23 18:02] VITALS: BP 119/71
[2024-11-23 18:29] LABS: Magnesium 2.1 mg/dl (1.6-2.3)
[2024-11-23 18:30] LABS: Alcohol None Detected
[2024-11-23] MEDS: MORPHINE SULFATE 2 MG IV (18:56)
[2024-11-23 19:00] VITALS: BP 132/73
[2024-11-23 20:08] VITALS: BP 127/66
[2024-11-23] MEDS: PERCOCET 5/325 1 TABLET PO (20:51)
[2024-11-23] MEDS: DELTASONE 40 MG PO (20:52)
[2024-11-23 21:00] VITALS: BP 117/65
== END 2024-11-23 21:59 | disposition home or self-care (01) ==
LOC: EMR 16:16
PROVIDERS: Physician Assistant; EMERGENCY PHYSICIAN Emergency Medicine; FAMILY PHYSICIAN Family Medicine
DX: M25.511 Pain in right shoulder (principal); R06.02 Shortness of breath; R07.9 Chest pain, unspecified; M25.562 Pain in left knee; J45.909 Unspecified asthma, uncomplicated; G43.909 Migraine, unspecified, not intractable, without status migrainosus; M19.90 Unspecified osteoarthritis, unspecified site; Z98.82 Breast implant status
CPT/HCPCS: 99285; 96374; 70450; 71046; 73030; 73564; 80053; 82077; 83735; 84484; 85025; 93005